=== PATIENT | female | born 1965 | race African-American/Black ===

== ENCOUNTER 2017-08-22 19:48 | Emergency (ER) | payer MEDICAID, OTHER ==
[~2017-08-22] VITALS: Ht 165.1 cm; Wt 131.0 kg
[~2017-08-22 19:48] MED LIST: IBUPROFEN; NAPROSYN; NORVASC
[2017-08-22] MEDS ORDERED: IBUPROFEN 600MG TABLET PO STA (22:05)
[2017-08-22 23:47] VITALS: BP 139/89
== END 2017-08-23 00:40 | disposition home or self-care (01) ==
LOC: ER 21:29
DX: S80.01XA Contusion of right knee, initial encounter (principal); J02.9 Acute pharyngitis, unspecified; M25.561 Pain in right knee; M17.11 Unilateral primary osteoarthritis, right knee
CPT/HCPCS: 73560; 81025; 87070; 87430; 99285

== ENCOUNTER 2021-08-10 11:48 | Emergency (ER) | payer MEDICAID, OTHER ==
[~2021-08-10] VITALS: Ht 162.6 cm; Wt 172.0 kg
[2021-08-10] MEDS ORDERED: NITROGLYCERIN 0.4MG TABLET SL SL ONE (12:45)
[2021-08-10] MEDS ORDERED: ASPIRIN 325MG EC TABLET PO ONE (12:45)
[2021-08-10 13:26] LABS: BASOPHILS % 0.6 % (0.0-2.0); EOSINOPHILS % 2.5 % (0.0-5.0); HEMATOCRIT. 33.1 % (36.0-48.0); LYMPHOCYTES % 20.9 % (20.0-50.0); MEAN CORPUSCULAR HEMOGLOBIN 30.6 pg (28.0-32.0); MEAN CORPUSCULAR VOLUME 91.9 fL (81.0-99.0); MEAN PLATELET VOLUME 7.9 fl (7.4-10.4); MONOCYTES % 5.5 % (2.0-8.0); NEUTROPHILS % 70.5 % (40.0-76.0); PLATELET 234 x1000/uL (130-400); RED CELL DISTRIBUTION WIDTH 16.3 % (11.6-14.6)
[2021-08-10] MEDS ORDERED: FUROSEMIDE 40MG/4ML VIAL IVP ONE (13:30)
[2021-08-10 13:32] LABS: CHLORIDE 111 mEq/L (98-107)
[2021-08-10 13:37] LABS: CLARITY URINE CLEAR (CLEAR); COLOR URINE YELLOW (YELLOW); KETONES URINE NEGATIVE (NEGATIVE); LEUKOCYTE ESTERASE URINE 1+ (NEGATIVE); NITRITE URINE NEGATIVE (NEGATIVE); OCCULT BLOOD URINE NEGATIVE (NEGATIVE); PH URINE 6.5 (4.5-8.0); PROTEIN URINE NEGATIVE (NEGATIVE); SPECIFIC GRAVITY URINE 1.024 (1.005-1.030)
[2021-08-10] MEDS ORDERED: MORPHINE SULFATE 4 MG/ML CPJ (NOT FOR IM USE) IV ONE (17:15)
[2021-08-10 23:30] VITALS: BP 142/84
[2021-08-10] MEDS ORDERED: ACETAMINOPHEN 325MG TABLET PO ONE (23:45)
== END 2021-08-11 00:40 | disposition short-term general hospital (02) ==
LOC: ER 11:59
DX: I11.0 Hypertensive heart disease with heart failure (principal); I50.9 Heart failure, unspecified; D64.9 Anemia, unspecified; E87.8 Other disorders of electrolyte and fluid balance, not elsewhere classified
CPT/HCPCS: 36415; 71045; 80053; 81003; 83880; 84484; 85025; 93005; 96374; 96375; 99285; J1940; J2270

== ENCOUNTER 2021-10-04 01:25 | Inpatient (IN) | payer MEDICAID, OTHER ==
[~2021-10-04] VITALS: Ht 165.1 cm; Wt 146.1 kg
[2021-10-04] MEDS ORDERED: NITROGLYCERIN OINT 1GM/INCH UDPKT TD ONE (02:00)
[2021-10-04] MEDS ORDERED: FUROSEMIDE 40MG/4ML VIAL IV ONE (02:00)
[2021-10-04] MEDS ORDERED: ASPIRIN 81MG TABLET PO ONE (02:00)
[2021-10-04 02:28] LABS: BASOPHILS % 1.3 % (0.0-2.0); EOSINOPHILS % 2.8 % (0.0-5.0); HEMATOCRIT. 32.9 % (36.0-48.0); HEMOGLOBIN. 10.8 g/dL (12.0-16.0); LYMPHOCYTES % 23.2 % (20.0-50.0); MEAN CORPUSCULAR HEMOGLOBIN 30.3 pg (28.0-32.0); MEAN CORPUSCULAR VOLUME 91.8 fL (81.0-99.0); MEAN PLATELET VOLUME 7.9 fl (7.4-10.4); MONOCYTES % 7.7 % (2.0-8.0); PLATELET 255 x1000/uL (130-400); RED BLOOD CELL COUNT 3.58 mill/uL (4.2-5.4); RED CELL DISTRIBUTION WIDTH 15.7 % (11.6-14.6)
[2021-10-04 02:34] LABS: CHLORIDE 111 mEq/L (98-107)
[2021-10-04] MEDS ORDERED: MORPHINE SULFATE 2 MG/ML CPJ (NOT FOR IM USE) IV ONE (04:15)
[2021-10-04] MEDS ORDERED: LORAZEPAM 0.5MG TABLET PO PRN (08:45)
[2021-10-04] MEDS ORDERED: NALOXONE HCL 0.4MG/ML VIAL IV PRN (08:45)
[2021-10-04] MEDS ORDERED: DOCUSATE SODIUM 100MG CAPSULE PO PRN (08:45)
[2021-10-04] MEDS ORDERED: IPRATROPIUM/ALBUTEROL 0.5-3(2.5)MG/3ML NEB HHN PRN (08:45)
[2021-10-04] MEDS ORDERED: CLONIDINE 0.1MG TABLET PO PRN (08:45)
[2021-10-04] MEDS ORDERED: ACETAMINOPHEN 325MG TABLET PO PRN ×2 (08:45)
[2021-10-04] MEDS ORDERED: ONDANSETRON HCL 4MG/2ML INJ IV PRN (08:45)
[2021-10-04] MEDS: HYDROCODONE/ACETAMINOPHEN 5/325MG TABLET PO PRN ×2 (08:48→15:29)
[2021-10-04 10:00] VITALS: BP 155/90
[2021-10-04] MEDS ORDERED: AMLO10TA4 MT (11:15)
[2021-10-04] MEDS ORDERED: FURO-151 PO (11:15)
[2021-10-04 12:00] VITALS: BP 140/91
[2021-10-04 16:00] VITALS: BP 159/111
[2021-10-04] MEDS ORDERED: FUROSEMIDE 40MG/4ML VIAL IVP SCH (16:00)
[2021-10-04] MEDS: SPIRONOLACTONE 25MG TABLET PO SCH (16:46)
[2021-10-04] MEDS: CARVEDILOL 3.125 MG TABLET PO SCH ×2 (16:46→21:24)
[2021-10-04] MEDS: FUROSEMIDE 40MG/4ML VIAL IVP SCH (17:15)
[2021-10-04 20:00] VITALS: BP 157/123
[2021-10-05] VITALS: BP 119/76
[2021-10-05 04:00] VITALS: BP 125/68
[2021-10-05] MEDS: HYDROCODONE/ACETAMINOPHEN 5/325MG TABLET PO PRN ×4 (04:12→22:19)
[2021-10-05] MEDS: FUROSEMIDE 40MG/4ML VIAL IVP SCH ×2 (05:20→18:03)
[2021-10-05 07:16] LABS: BASOPHILS % 0.6 % (0.0-2.0); EOSINOPHILS % 3.5 % (0.0-5.0); HEMATOCRIT. 35.4 % (36.0-48.0); HEMOGLOBIN. 11.2 g/dL (12.0-16.0); LYMPHOCYTES % 28.6 % (20.0-50.0); MEAN CORPUSCULAR HEMOGLOBIN 29.8 pg (28.0-32.0); MEAN CORPUSCULAR VOLUME 94.5 fL (81.0-99.0); MEAN PLATELET VOLUME 7.9 fl (7.4-10.4); MONOCYTES % 6.9 % (2.0-8.0); NEUTROPHILS % 60.4 % (40.0-76.0); PLATELET 211 x1000/uL (130-400); RED BLOOD CELL COUNT 3.74 mill/uL (4.2-5.4); RED CELL DISTRIBUTION WIDTH 16.2 % (11.6-14.6)
[2021-10-05 08:00] VITALS: BP 134/84
[2021-10-05 08:00] LABS: CHLORIDE 104 mEq/L (98-107)
[2021-10-05] MEDS: SPIRONOLACTONE 25MG TABLET PO SCH (10:09)
[2021-10-05] MEDS: CARVEDILOL 3.125 MG TABLET PO SCH ×2 (10:10→22:19)
[2021-10-05 12:00] VITALS: BP 142/69
[2021-10-05 16:00] VITALS: BP 131/72
[2021-10-05 19:44] LABS: *AMPHETAMINES SCREEN URINE NEGATIVE (NEGATIVE); *BARBITURATES SCREEN URINE NEGATIVE (NEGATIVE); *BENZODIAZEPINES SCREEN URINE NEGATIVE (NEGATIVE); *COCAINE SCREEN URINE PRESUMTIVE POSITIVE (NEGATIVE)
[2021-10-05 19:45] LABS: CANNABINOID URINE SCREEN NEGATIVE (NEGATIVE); METHADONE URINE SCREEN NEGATIVE (NEGATIVE); OPIATES URINE SCREEN PRESUMTIVE POSITIVE (NEGATIVE); PHENCYCLIDINE URINE SCREEN PRESUMTIVE POSITIVE (NEGATIVE)
[2021-10-05 20:00] VITALS: BP 131/76
[2021-10-05 21:03] LABS: PHOSPHORUS 3.5 mg/dL (2.5-4.9)
[2021-10-06] VITALS: BP 128/58
[2021-10-06 04:00] VITALS: BP 141/80
[2021-10-06] MEDS: HYDROCODONE/ACETAMINOPHEN 5/325MG TABLET PO PRN ×3 (04:43→21:59)
[2021-10-06] MEDS: FUROSEMIDE 40MG/4ML VIAL IVP SCH ×2 (04:47→19:01)
[2021-10-06 06:38] LABS: CHLORIDE 101 mEq/L (98-107)
[2021-10-06 06:39] LABS: BASOPHILS % 0.7 % (0.0-2.0); EOSINOPHILS % 3.7 % (0.0-5.0); HEMATOCRIT. 36.1 % (36.0-48.0); HEMOGLOBIN. 11.7 g/dL (12.0-16.0); LYMPHOCYTES % 27.2 % (20.0-50.0); MEAN CORPUSCULAR HEMOGLOBIN 29.5 pg (28.0-32.0); MEAN CORPUSCULAR VOLUME 90.5 fL (81.0-99.0); MEAN PLATELET VOLUME 7.6 fl (7.4-10.4); MONOCYTES % 8.5 % (2.0-8.0); NEUTROPHILS % 59.9 % (40.0-76.0); PLATELET 296 x1000/uL (130-400); RED BLOOD CELL COUNT 3.98 mill/uL (4.2-5.4); RED CELL DISTRIBUTION WIDTH 15.7 % (11.6-14.6)
[2021-10-06 08:00] VITALS: BP 126/74
[2021-10-06] MEDS ORDERED: POTASSIUM CHLORIDE 20MEQ TABLET SR PO SCH (09:45)
[2021-10-06] MEDS: CARVEDILOL 3.125 MG TABLET PO SCH (10:49)
[2021-10-06] MEDS: LOSARTAN POTASSIUM 25 MG TABLET PO SCH (10:50)
[2021-10-06] MEDS: SPIRONOLACTONE 25MG TABLET PO SCH (10:59)
[2021-10-06 12:00] VITALS: BP 108/70
[2021-10-06] MEDS ORDERED: DEXTROSE 50% WATER 50ML SYRINGE IV PRN (12:00)
[2021-10-06] MEDS: BLOOD SUGAR DIAGNOSTIC STRIP TEST SCH ×3 (12:10→21:50)
[2021-10-06] MEDS: INSULIN LISPRO 100 UNITS/ML SUBCUT SCH ×3 (12:40→22:04)
[2021-10-06 16:00] VITALS: BP 115/80
[2021-10-06 20:00] VITALS: BP 125/75
[2021-10-06] MEDS: METOPROLOL SUCCINATE 50MG ER TABLET PO SCH (20:45)
[2021-10-07 00:32] VITALS: BP 131/100
[2021-10-07 04:00] VITALS: BP 108/69
[2021-10-07] MEDS: FUROSEMIDE 40MG/4ML VIAL IVP SCH (05:35)
[2021-10-07 06:56] LABS: CHLORIDE 98 mEq/L (98-107)
[2021-10-07] MEDS: HYDROCODONE/ACETAMINOPHEN 5/325MG TABLET PO PRN (07:40)
[2021-10-07] MEDS: BLOOD SUGAR DIAGNOSTIC STRIP TEST SCH ×3 (07:44→18:14)
[2021-10-07] MEDS: LOSARTAN POTASSIUM 25 MG TABLET PO SCH (08:49)
[2021-10-07] MEDS: INSULIN LISPRO 100 UNITS/ML SUBCUT SCH ×2 (08:51→13:10)
[2021-10-07] MEDS: SPIRONOLACTONE 25MG TABLET PO SCH (10:21)
[2021-10-07 12:00] VITALS: BP 103/66
[2021-10-07] MEDS: METOPROLOL SUCCINATE 50MG ER TABLET PO SCH (14:34)
[2021-10-07] MEDS ORDERED: FURO-151 PO (15:21)
[2021-10-07] MEDS ORDERED: LOSA25TA3 PO (15:21)
[2021-10-07] MEDS ORDERED: METO-385 PO (15:21)
[2021-10-07] MEDS ORDERED: SPIR25TA PO (15:21)
[2021-10-07 16:00] VITALS: BP 111/68
[2021-10-07 17:33] VITALS: BP 111/68
[2021-10-08] MEDS ORDERED: FUROSEMIDE 40MG TABLET PO SCH (09:00)
== END 2021-10-07 18:30 | disposition home or self-care (01) | DRG 194 ==
LOC: ER 01:25 → 8WST 04:23 → ENRESERV 07:19 → 7WST 10-06 20:21
PROVIDERS: ADMIT Internal Medicine; ATTEND Internal Medicine
DX: I11.0 Hypertensive heart disease with heart failure (principal); J96.00 Acute respiratory failure, unspecified whether with hypoxia or hypercapnia; D64.9 Anemia, unspecified; E66.01 Morbid (severe) obesity due to excess calories; F14.10 Cocaine abuse, uncomplicated; E11.65 Type 2 diabetes mellitus with hyperglycemia; I50.43 Acute on chronic combined systolic (congestive) and diastolic (congestive) heart failure; F17.210 Nicotine dependence, cigarettes, uncomplicated; I16.0 Hypertensive urgency; J44.9 Chronic obstructive pulmonary disease, unspecified; Z20.822 Contact with and (suspected) exposure to COVID-19; I35.0 Nonrheumatic aortic (valve) stenosis; I49.3 Ventricular premature depolarization; Z91.14 Patient's other noncompliance with medication regimen; Z71.6 Tobacco abuse counseling; Z79.84 Long term (current) use of oral hypoglycemic drugs
CPT/HCPCS: 36415; 71045; 80048; 80053; 80305; 82962; 83036; 83735; 83880; 84100; 84484; 85025; 87426; 93005; 93306; 97162; 99285; C1893; J1815; J1940; J2270; A4315

== ENCOUNTER 2022-01-15 08:20 | Emergency (ER) | payer OTHER ==
[~2022-01-15] VITALS: Ht 165.1 cm; Wt 142.0 kg
[~2022-01-15 08:20] MED LIST changes: +FURO-151 PO; -IBUPROFEN; +LOSA25TA3 PO; +METO-385 PO; -NAPROSYN; -NORVASC; +SPIR25TA PO
[2022-01-15] MEDS ORDERED: MORPHINE SULFATE 4 MG/ML CPJ (NOT FOR IM USE) IV STA ×2 (08:41→16:56)
[2022-01-15 09:42] LABS: BASOPHILS % 1.1 % (0.0-2.0); EOSINOPHILS % 3.7 % (0.0-5.0); HEMOGLOBIN. 10.7 g/dL (12.0-16.0); LYMPHOCYTES % 23.8 % (20.0-50.0); MEAN CORPUSCULAR HEMOGLOBIN 30.4 pg (28.0-32.0); MEAN CORPUSCULAR VOLUME 87.9 fL (81.0-99.0); MEAN PLATELET VOLUME 7.5 fl (7.4-10.4); MONOCYTES % 4.3 % (2.0-8.0); NEUTROPHILS % 67.1 % (40.0-76.0); PLATELET 273 x1000/uL (130-400); RED BLOOD CELL COUNT 3.53 mill/uL (4.2-5.4); RED CELL DISTRIBUTION WIDTH 15.8 % (11.6-14.6)
[2022-01-15] MEDS ORDERED: FUROSEMIDE 40MG/4ML VIAL IVP ONE (09:45)
[2022-01-15] MEDS ORDERED: ENALAPRIL 2.5MG/2ML VIAL 2ML IV ONE (09:45)
[2022-01-15 10:07] LABS: CHLORIDE 106 mEq/L (98-107)
[2022-01-15] MEDS ORDERED: ENALAPRIL 1.25MG/ML VIAL 1ML IV NR (10:15)
[2022-01-15] MEDS ORDERED: ONDANSETRON HCL 4MG/2ML INJ IV STA (16:56)
[2022-01-15 20:25] VITALS: BP 108/75
== END 2022-01-15 20:50 | disposition short-term general hospital (02) ==
LOC: ER 08:20 → CANBEDREQ 22:33
DX: R07.89 Other chest pain (principal); J44.9 Chronic obstructive pulmonary disease, unspecified; I11.0 Hypertensive heart disease with heart failure; I50.9 Heart failure, unspecified; Z20.822 Contact with and (suspected) exposure to COVID-19
CPT/HCPCS: 36415; 71045; 80053; 83880; 84484; 85025; 87426; 93005; 96374; 96375; 96376; 99285; J1940; J2270; J2405; J3490

== ENCOUNTER 2022-05-24 20:39 | Emergency (ER) | payer OTHER ==
[~2022-05-24] VITALS: Ht 165.1 cm; Wt 100.0 kg
[2022-05-24] MEDS ORDERED: ASPIRIN 81MG TABLET PO ONE (21:30)
[2022-05-24] MEDS ORDERED: NITROGLYCERIN OINT 1GM/INCH UDPKT TD ONE (21:30)
[2022-05-24] MEDS ORDERED: FUROSEMIDE 40MG/4ML VIAL IV ONE (21:30)
[2022-05-24 21:54] LABS: BASOPHILS % 0.3 % (0.0-2.0); EOSINOPHILS % 3.1 % (0.0-5.0); HEMATOCRIT. 35.1 % (36.0-48.0); HEMOGLOBIN. 11.3 g/dL (12.0-16.0); LYMPHOCYTES % 32.3 % (20.0-50.0); MEAN CORPUSCULAR HEMOGLOBIN 29.5 pg (28.0-32.0); MEAN CORPUSCULAR VOLUME 91.3 fL (81.0-99.0); MEAN PLATELET VOLUME 7.6 fl (7.4-10.4); MONOCYTES % 5.5 % (2.0-8.0); NEUTROPHILS % 58.8 % (40.0-76.0); PLATELET 247 x1000/uL (130-400); RED BLOOD CELL COUNT 3.84 mill/uL (4.2-5.4); RED CELL DISTRIBUTION WIDTH 15.2 % (11.6-14.6)
[2022-05-24 22:10] LABS: CHLORIDE 107 mEq/L (98-107)
[2022-05-24] MEDS ORDERED: POTASSIUM CHLORIDE 20MEQ TABLET SR PO ONE (22:30)
[2022-05-24 23:54] VITALS: BP 170/101
== END 2022-05-25 02:53 | disposition short-term general hospital (02) ==
LOC: ER 20:39
DX: I11.0 Hypertensive heart disease with heart failure (principal); I50.9 Heart failure, unspecified; E87.6 Hypokalemia; J44.9 Chronic obstructive pulmonary disease, unspecified
CPT/HCPCS: 36415; 71045; 80053; 83880; 84484; 85025; 93005; 96374; 99285; J1940; Z7610

== ENCOUNTER 2025-05-02 13:23 | Emergency (ER) | payer MEDICAID ==
[~2025-05-02] VITALS: Ht 162.6 cm; Wt 109.0 kg
[~2025-05-02 13:23] MED LIST changes: +EMPA10TA PO; +FURO40TA5 PO; +GABA-529 MT; +HYDR-4001 MT; +LOSA-412 PO; -LOSA25TA3 PO; +MAGN400C MT; -METO-385 PO; +QUET50TA PO
[2025-05-02 13:26] VITALS: O2SAT 98
[2025-05-02] MEDS: METHOCARBAMOL 500MG TABLET PO ONE (13:56)
[2025-05-02] MEDS: KETOROLAC 30MG/ML VIAL IM ONE (13:57)
[2025-05-02] MEDS ORDERED: IBUP-2029 MT (15:16)
[2025-05-02] MEDS ORDERED: LIDO700A30 TP (15:16)
[2025-05-02] MEDS ORDERED: METH-653 MT (15:16)
[2025-05-02 16:51] VITALS: BP 149/95; PULSE 88; RESP 16; TEMP 36.6; O2SAT 98
[2025-06-02] MEDS ORDERED: EMPA10TA PO (13:42)
[2025-06-02] MEDS ORDERED: METH-653 MT (13:42)
[2025-06-02] MEDS ORDERED: SPIR25TA PO (13:42)
[2025-06-02] MEDS ORDERED: LOSA-412 PO (13:42)
[2025-06-02] MEDS ORDERED: QUET50TA PO (13:42)
[2025-06-02] MEDS ORDERED: FURO40TA5 PO (13:42)
[2025-06-02] MEDS ORDERED: MAGN400C MT (13:42)
== END 2025-05-02 16:52 | disposition home or self-care (01) ==
LOC: ER 13:23
DX: S43.401A Unspecified sprain of right shoulder joint, initial encounter (principal); S20.219A Contusion of unspecified front wall of thorax, initial encounter; E78.00 Pure hypercholesterolemia, unspecified; E11.9 Type 2 diabetes mellitus without complications; I11.0 Hypertensive heart disease with heart failure; I50.9 Heart failure, unspecified; M19.011 Primary osteoarthritis, right shoulder; Z79.84 Long term (current) use of oral hypoglycemic drugs; Z79.899 Other long term (current) drug therapy; X58.XXXA Exposure to other specified factors, initial encounter; Y93.89 Activity, other specified; Y92.89 Other specified places as the place of occurrence of the external cause; Y99.8 Other external cause status
CPT/HCPCS: 99284; 71111; 72170; 73030; 93005; 96372; J1885